=== PATIENT | male | born 1965 ===

== ENCOUNTER 2017-08-12 12:04 | Day surgery (SDC) | payer OTHER ==
[~2017-08-12] VITALS: Ht 177.8 cm; Wt 108.9 kg
[2017-08-12] VITALS (9 sets, daily range): BP systolic 143–165; BP diastolic 90–103
[~2017-08-12 12:04] MED LIST: ceFAZolin 1 GM premix IV ONE; celeBREX 200mg Cap **SURGERY PATIENTS ONLY ORAL ONE; oxyCONTIN 20mg tab ORAL ONE
[2017-08-12] MEDS ORDERED: LOSARTAN POTASS50 MG ORAL (12:58)
[2017-08-12] MEDS ORDERED: EPINEPHrine 1mg/1ml Amp ONE (14:09)
[2017-08-12] MEDS ORDERED: Bupivacaine 0.25% Inj 30ml INJ ONE (14:09)
[2017-08-12] MEDS ORDERED: LR 1000ml 1,000 ML IVLG SCH (14:26)
[2017-08-12] MEDS ORDERED: LORazepam Inj 2mg/ml 1ml IV PRN (14:30)
[2017-08-12] MEDS ORDERED: Dexamethasone 4mg/ml vial ONE (14:30)
[2017-08-12] MEDS ORDERED: LR 1000ml ONE (14:30)
[2017-08-12] MEDS ORDERED: HYDROcodone/Acetamin 7.5/325 tab ORAL PRN (14:30)
[2017-08-12] MEDS ORDERED: Labetalol 5mg/ml 20ml vial IV PRN (14:30)
[2017-08-12] MEDS ORDERED: Atropine Inj 1mg/10ml Syr IV PRN (14:30)
[2017-08-12] MEDS ORDERED: DiphenhydrAMINE 50mg/ml Inj IVP PRN (14:30)
[2017-08-12] MEDS ORDERED: Midazolam 2mg/2ml Inj IVP PRN (14:30)
[2017-08-12] MEDS ORDERED: fentaNYL 100 mcg/2 mL IV PRN (14:30)
[2017-08-12] MEDS ORDERED: Norco 5mg/325mg tab ORAL PRN ×2 (14:30→15:30)
[2017-08-12] MEDS ORDERED: Sterile Water Irrig 1000ml IRRIG ONE (14:30)
[2017-08-12] MEDS ORDERED: Midazolam 2mg/2ml Inj ONE (14:30)
[2017-08-12] MEDS ORDERED: Propofol 200mg/20ml IV ONE (14:30)
[2017-08-12] MEDS ORDERED: NS Irrig 4000ml IRRIG ONE ×2 (14:30→14:40)
[2017-08-12] MEDS ORDERED: Alfentanil 2ml Inj ONE (14:30)
[2017-08-12] MEDS ORDERED: oxyCODONE HCL/Acetaminophen 5/325mg ORAL PRN (14:30)
[2017-08-12] MEDS ORDERED: Lidocaine 1% MPF 10mg/ml 5ml ONE (14:30)
[2017-08-12] MEDS ORDERED: Hydromorphone 0.5mg/0.5ml inj IVP PRN (14:30)
[2017-08-12] MEDS ORDERED: Ketorolac 30mg Inj IV PRN ×2 (14:30)
--- NOTE | 2017-08-12 14:31 | Anethesia Preoperative Eval ---
Anesthesia Pre-op PMH/ROS General Date of Evaluation: Aug 12, 2017 Time of Evaluation: 14:36 Anesthesiologist: Katie ASA Score: ASA 3 Mallampati Score Class I : Soft palate, uvula, fauces, pillars visible Class II: Soft palate, uvula, fauces visible Class III: Soft palate, base of uvula visible Class IV: Only hard plate visible Mallampati Classification: Class III Surgeon: Hayder Diagnosis: L Shoulder Pain Surgical Procedure: L Shoulder Arthroscopy Anesthesia History: none Social History: current smoker Family History: no anesthesia problems Allergies: Coded Allergies: No Known Allergies (Unverified , 08/12/17) Medications: see eMAR Past Medical History Cardiovascular: Reports: HTN, other - HL Pulmonary: Reports: COPD - Smoker Gastrointestinal/Genitourinary: Reports: GERD, other - BPH Neurologic/Psychiatric: Reports: depression/anxiety Hematology/Immune: Reports: anemia Other: obesity - BMI 37 Anesthesia Pre-op Phys. Exam Physician Exam Last Vital Signs Date Time Temp Pulse Resp B/P (MAP) Pulse Ox O2 Delivery O2 Flow Rate FiO2 08/12/17 12:56 97.1 61 19 143/90 98 Room Air 97.1 Constitutional: NAD Neurologic: CN 2-12 intact Cardiovascular: RRR Respiratory: CTA Gastrointestinal: S/NT/ND Airway Exam Mallampati Score: Class III MO: limited ROM: limited Teeth: missing, intact Anesthesia Pre-op A/P Risk Assessment & Plan Assessment: ASA 3 Plan: GA, BIS, L Supraclavicular Block Status Change Before Surgery: No Pre-Antibiotics Dru Grams Ancef IV Given Within 1 Hr of Incision: Yes Time Given: 15:01 Adin Wilson MD Aug 12, 2017 14:31
--- NOTE | 2017-08-12 14:32 | Immediate Post-Op Evaluation ---
Immediate Post-Op Evalulation Immediate Post-Op Evalulation Procedure: L Shoulder Athroscopy Date of Evaluation: Aug 12, 2017 Time of Evaluation: 16:37 IV Fluids: 1000 LR Blood Products: 0 Estimated Blood Loss: 7 Urinary Output: 0 Blood Pressure Systolic: 162 Blood Pressure Diastolic: 119 Pulse Rate: 79 Respiratory Rate: 16 O2 Sat by Pulse Oximetry: 100 Temperature (Fahrenheit): 97.5 Pain Score (1-10): 1 Nausea: No Vomiting: No Complications 0 Patient Status: awake, reacts, patent, extubated, none Hydration Status: adequate Dru Grams Ancef IV Given Within 1 Hr of Incision: Yes Time Given: 15:01 Adin Wilson MD Aug 12, 2017 14:32
--- NOTE | 2017-08-12 14:32 | 48 Hour Post Anesthesia Eval ---
Post Anesthesia Evaluation Procedure: L Shoulder Athroscopy Date of Evaluation: Aug 12, 2017 Time of Evaluation: 18:47 Blood Pressure Systolic: 162 0: 97 Pulse Rate: 82 Respiratory Rate: 18 Temperature (Fahrenheit): 97.5 O2 Sat by Pulse Oximetry: 100 Airway: patent Nausea: No Vomiting: No Pain Intensity: 1 Hydration Status: adequate Cardiopulmonary Status: Stable Mental Status/LOC: patient returned to baseline Follow-up Care/Observations: 0 Post-Anesthesia Complications: 0 Follow-up care needed: ready to discharge Adin Wilson MD Aug 12, 2017 14:32
--- NOTE | 2017-08-12 15:26 | Operative Note - PDOC ---
Operative Note Operative Note Pre-op Diagnosis: left shoulder rct/ impingement Procedure: left shoulder rc repair, sad Post-op Diagnosis: same as pre-op plus Operative Findings: consistent w/pre-op dx studies Anesthesia: regional Specimen: none Complications: none Condition: stable Estimated Blood Loss: none Implant(s) used?: Yes JAMILAH DAY Aug 12, 2017 15:26
--- NOTE | 2017-08-12 15:26 | Pre-Procedure Note/Attestation ---
Pre-Procedure Note/Attestation Complete Prior to Procedure Planned Procedure: left Procedure Narrative: shoulder arthroscopy rc repair, sad Indications for Procedure Pre-Operative Diagnosis: left shoulder rct/ impingement Attestation I attest that I discussed the nature of the procedure; its benefits; risks and complications; and alternatives (and the risks and benefits of such alternatives ), prior to the procedure, with the patient (or the patient's legal ambulatory services representative). I attest that, if there was a reasonable possibility of needing a blood transfusion, the patient (or the patient's legal ambulatory services representative) was given the [facility] standardized written summary, pursuant to the Shiv Nick Blood Safety Act ([place] Health and Safety Code # 1645, as amended). I attest that I re-evaluated the patient just prior to the surgery and that there has been no change in the patient's H&P, except as documented below: JAMILAH DAY Aug 12, 2017 15:26
[2017-08-12] MEDS ORDERED: Tylenol #3 tab (300mg/30mg) ORAL PRN (15:30)
[2017-08-12] MEDS ORDERED: D5 1/2NS 1,000 ML IV SCH (15:30)
[2017-08-12] MEDS ORDERED: HYDROmorphone 1mg/ml Carpuject SUBQ PRN (15:30)
--- NOTE | 2017-08-12 23:30 | Operative Note - Dictated ---
DATE OF OPERATION: 08/12/2017 PREOPERATIVE DIAGNOSES: 1. Left shoulder full-thickness rotator cuff tear. 2. Impingement syndrome. POSTOPERATIVE DIAGNOSES: 1. Left shoulder full-thickness rotator cuff tear. 2. Impingement syndrome. 3. Biceps tendon tear. PROCEDURE: 1. Left shoulder extensive intra-articular debridement. 2. Open biceps tenolysis. 3. Left shoulder arthroscopic rotator cuff repair. 4. Left shoulder decompression bursectomy. SURGEON: Geovany Singletary M.D. ANESTHESIA: Interscalene with general. INDICATION FOR PROCEDURE: The patient is a pleasant gentleman who had a significant left shoulder pain. He was diagnosed with a full-thickness rotator cuff tear. Therefore, indicated for operative fixation. Risks, limitations, expectations, and complications of procedure were discussed in detail. All questions were addressed. DESCRIPTION OF PROCEDURE: Informed consent was obtained. The patient was brought to the operating room and placed supine under interscalene general anesthesia. The patient was then carefully placed in beach-chair position. Left shoulder was prepped and draped in sterile manner. Time-out was performed. The portal sites were marked out. A posterolateral stab incision was then made. Trocar was introduced into the glenohumeral joint. No significant chondral damage. There was some fraying of the superior labrum. The biceps tendon had fraying and partial tear, a longitudinal split. The footprint of the supraspinatus was completely torn. At this point, an anterior working portal was established. Biceps tenodesis was performed. The tendon was debrided down to the superior labrum to confirm this was nice and stable. Once that was done, the camera was placed in the subacromial space. Complete bursectomy was performed. Acromioplasty was started from lateral to medial and completed from posterior to anterior. The tissue lateral to the articular margin was debrided off any soft tissues. An anchor was then placed. Two mattress sutures were placed. The supraspinatus tendon along with lateral row anchored to synch down the rotator cuff. It moved as a unit. At this point, the instruments were removed. The camera was placed back in the glenohumeral joint. The footprint was re-created. At this point, the instruments were removed. Portal sites were closed with 3-0 Monocryl sutures. Steri-Strips and a sterile dressing were applied. The patient was awoken and taken to recovery room with stable vital signs. ESTIMATED BLOOD LOSS: None. COMPLICATIONS: None. SPECIMENS: None. IMPLANTS: Include two Biomet anchors. Geovany Singletary M.D. DR: Philip JOB#: [id number] CC: CHRISTOPHER
== END 2017-08-12 18:00 | disposition home or self-care (01) ==
LOC: SUR 12:04
DX: M75.122 Complete rotator cuff tear or rupture of left shoulder, not specified as traumatic (principal); M75.41 Impingement syndrome of right shoulder; S46.212A Strain of muscle, fascia and tendon of other parts of biceps, left arm, initial encounter; I10 Essential (primary) hypertension; F17.200 Nicotine dependence, unspecified, uncomplicated; J44.9 Chronic obstructive pulmonary disease, unspecified; K21.9 Gastro-esophageal reflux disease without esophagitis; F32.9 Major depressive disorder, single episode, unspecified; F41.9 Anxiety disorder, unspecified; V49.9XXA Car occupant (driver) (passenger) injured in unspecified traffic accident, initial encounter; Y93.9 Activity, unspecified; Y92.9 Unspecified place or not applicable
CPT/HCPCS: 29823; 29827; 29828; C1713; J0171; J0360; J0690; J1100; J2250; J2405; J2704; J3490; J7120; 94003; 94150